=== PATIENT | female | born 1970 | race American Indian/Alaskan Native ===

== ENCOUNTER 2017-05-19 10:41 | Outpatient (CLI) | payer BC ==
--- NOTE | 2017-05-20 11:05 | Mammography Report ---
BILATERAL DIGITAL SCREENING MAMMOGRAM with CAD: 05/19/17 10:41:00 CLINICAL: Routine screening. COMPARISON:04/03/16 FINDINGS: The breasts are heterogeneously dense, which may obscure small masses. No mass, architectural distortion or suspicious calcifications. IMPRESSION: No mammographic evidence of malignancy. BI-RADS CATEGORY: 1 - - Negative RECOMMENDATION: Routine mammographic screening in one year. COMMENT: Patient follow-up letters are generated by our [employer] application.
== END 2017-05-19 10:42 | disposition home or self-care (01) ==
LOC: SPVWC 10:41
PROVIDERS: ATTEND Obstetrics & Gynecology
DX: Z12.31 Encounter for screening mammogram for malignant neoplasm of breast (principal)
CPT/HCPCS: 77067; G0202

== ENCOUNTER 2017-09-28 08:13 | Observation (INO) | payer BC ==
[2017-09-27 12:34] LABS: Basophils % (Auto) 1.1 % (0.0-1.8); Eosinophils # (Auto) 0.1 K/mm3 (0.0-0.4); Eosinophils % (Auto) 2.4 % (0.0-4.3); Hematocrit 36.2 % (30.3-42.9); Hemoglobin 11.6 gm/dl (10.1-14.3); Lymphocytes # (Auto) 1.1 K/mm3 (1.2-5.4); Lymphocytes % (Auto) 39.3 % (13.4-35.0); Mean Corpuscular HGB Conc 32 % (30-34); Mean Corpuscular Volume 78 fl (79-97); Monocytes # (Auto) 0.3 K/mm3 (0.0-0.8); Monocytes % (Auto) 12.2 % (0.0-7.3); Platelet Count 170 K/mm3 (140-440); Red Blood Count 4.62 M/mm3 (3.65-5.03); Red Cell Distribution Width 12.7 % (13.2-15.2)
[2017-09-27 12:35] LABS: Mean Corpuscular Hemoglobin 25 pg (28-32)
[2017-09-27 12:56] LABS: BUN/Creatinine Ratio 13; Blood Urea Nitrogen 10 mg/dL (7-17); Calcium 8.9 mg/dL (8.4-10.2); Hemolysis Index 6
--- NOTE | 2017-09-27 13:15 | Anesthesia Consultation ---
Anesthesia Consult and Med Hx Date of service: 09/27/17 - Airway Anesthetic Teeth Evaluation: Good, Caps, Crowns ROM Head & Neck: Adequate Mental/Hyoid Distance: Adequate Mallampati Class: Class II Intubation Access Assessment: Probably Good - Pulmonary Exam CTA: Yes - Cardiac Exam Cardiac Exam: RRR - Pre-Operative Health Status ASA Pre-Surgery Classification: ASA2 Proposed Anesthetic Plan: General Nerve Block: TAP - Pre-Anesthesia Comment Pre-Anesthesia Comments: Patient indicates that she has thalassemia - Pulmonary Hx Smoking: No - Cardiovascular System Hx Hypertension: No - Central Nervous System Hx Psychiatric Problems: No - Gastrointestinal Hx Gastroesophageal Reflux Disease: No - Endocrine Hx Hypothyroidism: Yes (Treated in the past, unsure about now) - Other Systems Hx Alcohol Use: Yes (occas) Hx Cancer: No - Additional Comments Anesthesia Medical History Comments: The patient indicates that she had back pain after a spinal anesthetic.
--- NOTE | 2017-09-27 16:39 | History and Physical Report ---
History of Present Illness Date of examination: 09/23/17 Chief complaint: Worsening severe dysmenorrhea and pelvic pain, intermittent menometrorrhagia History of present illness: History of Present Illness: This is a 46 year old female who presents for pre-op visit for hysterectomy. She has had a long history of dysmenorrhea and pelvic pain along with intermittent menometrorrhagia. Pain has become progressively worse over the last 8years to the point where now the pain is interfering with her quality of life. Pain improved with POPPY continuous therapy however she experienced excessive and frequent irregular bleeding on hormonal therapy. She declines any other hormonal/medical therapy or conservative surgical intervention. She now desires to proceed with hysterectomy and reveal of her fallopians and ovaries. Past History : 3 Term Births: 2 Living Children: 2 Para: 2 Spont. 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, followed by PCP thalassemia Past Surgical History: Reviewed history from 04/05/2008 and no changes required: D&C Family History Summary: Reviewed history Last on 07/15/2017 and no changes required:09/27/2017 Other family member - Has No Family History of Biliary Tract Cancer - Entered On : 05/28/2017 Other family member - Has No Family History of Brain Cancer - Entered On: 2016 Other family member - Has No Family History of Colon Cancer - Entered On: 2016 Other family member - Has No Family History of DVT/PE on OCP - Entered On: 05/28 Other family member - Has No Family History of Kidney/Urinary Tract Cancer - Entered On: 05/28/2017 Other family member - Has No Family History of Ovarvian Cancer - Entered On: Other family member - Has No Family History of Pancreatic Cancer - Entered On: 05/28/2017 Other family member - Has No Family History of Stomach Cancer - Entered On: Other family member - Has No Family History of Small Bowel Cancer - Entered On: 05/28/2017 Other family member - Has No Family History of Uterine Cancer - Entered On: Aunt - Has Family History Breast Cancer - maternal, diagnosed in at age 64 - Entered On: 09/27/2017 General Comments - FH: No Family History of Breast Cancer No Family History of Colon Cancer No Family History of Ovarian Cancer No Family History of DVT/PE on OCP Social History: Reviewed history from 05/13/2017 and no changes required: Patient is Smoking History: Patient has never smoked. Risk Factors: PAP Smear History: Date of Last PAP Smear: 07/15/2017 Previous Tobacco Use: Signed On - 05/28/2017 Smoked Tobacco Use: Never smoker Smokeless Tobacco Use: Never Passive smoke exposure: no Drug use: no HIV high-risk behavior: no Previous Alcohol Use: Signed On - 05/28/2017 Alcohol use: yes Type: occ Drinks per day: <1 Exercise: yes Times per week: 3 Type of Exercise: occ Seatbelt use: 100 % Mammogram History: Date of Last Mammogram: 05/19/2017 PAP Smear History: Date of Last PAP Smear: 07/15/2017 Review of Systems General Denies fever, chills, sweats, anorexia, fatigue, weakness, malaise, weight loss and sleep disorder. Complains of pelvic pain and painful periods. Denies vaginal discharge, incontinence, dysuria, hematuria, urinary frequency, amenorrhea, menorrhagia, abnormal vaginal bleeding, genital sores, decreased libido, painful sex, urinary urgency, hot flashes, vaginal dryness, vaginal itching and vaginal odor. CV Denies chest pains, palpitations, syncope, dyspnea on exertion, orthopnea, PND and peripheral edema. Resp Denies cough, dyspnea at rest, excessive sputum, hemoptysis, wheezing and pleurisy. GI Denies nausea, vomiting, diarrhea, constipation, change in bowel habits, abdominal pain, melena, hematochezia, jaundice, gas/bloating, indigestion/ heartburn, dysphagia and odynophagia. Endo Denies cold intolerance, heat intolerance, polydipsia, polyphagia, polyuria and unusual weight change. Breast Denies left breast lump, right breast lump, nipple discharge, bloody discharge from nipple, breast pain, abnormal mammogram and breast enlargement. MS Denies back pain, joint pain, joint swelling, muscle cramps, muscle weakness, stiffness, arthritis, sciatica, restless legs, leg pain at night and leg pain with exertion. Derm Denies rash, itching, dryness and suspicious lesions. Neuro Denies paralysis, paresthesias, headache, seizures, tremors, vertigo, transient blindness, frequent falls, frequent headaches and difficulty walking. Psych Denies depression, anxiety, irritability and mood swings. Eyes Denies blurring, diplopia, irritation, discharge, vision loss, eye pain and photophobia. ENT Denies earache, ear discharge, tinnitus, decreased hearing, nasal congestion, nosebleeds, sore throat and hoarseness. Allergy Denies urticaria, allergic rash, hay fever and recurrent infections. Heme Denies abnormal bruising, bleeding and enlarged lymph nodes. Physical Exam Appearance: well developed, well nourished, no acute distress Other Exams Lungs: no rales, rhonchi, or wheezes Heart: S1, S2, no murmur, rub, or gallop Abdomen: soft, non-tender, no masses, Skin: no ulcers, xanthomas Lymph: no cervical, axillary, or inguinal adenopathy Extremities: normal alignment, no joint enlargement, crepitus, masses or tenderness; normal tone and strength Genitourinary Exam Vulva: normal, no lesions or discharge Urethral meatus: normal size and location, no lesions or discharge Urethra: no discharge Bladder: no cystocele Vagina: normal appearance, no discharge, lesions. No evidence of cystocele or rectocele. Cervix: normal appearance, no lesions, no discharge Uterus: first-degree retroversion, fixed Adnexa: no masses or tenderness Impression & Recommendations: Problem # 1: DYSMENORRHEA (ICD-625.3) (FLS17-Q66.6) Consent reviewed and signed . Possible laparoscopy or laparotomy explained to patient. The risks and alternatives for this surgery were reviewed with the patient. She was informed of possible bleeding, infection, injury to bowel, bladder, ureters or other adjacent organs. She was also informed that her pain may due to endometriosis and to keep her ovaries may cause her to continue ot have pain. She desires to proceed with removal of both of her fallopian tubes and ovaries. She was informed she will immediately be placed in menopause after ovaries have been removed and her mortality, morbidity and cancer risk may increase. The patient was instructed/informed the following: The normal length of hospital stay for this procedure. Nothing to eat or drink after midnight the evening prior to surgery. Clear liquids the day before surgery. Fleets enema the day prior to surgery. Pre-op instruction sheets given. Wound care instructions given. Infection precautions reviewed, patient to call for any signs or symptoms of infection. The usual discomforts associated with this procedure were detailed. Proper use of pain medicines was reviewed. Patient was given ample opportunity to have all her questions answered before signing informed consent. Problem # 2: Pelvic and perineal pain (ICD-789.00) (PQA70-U47.2) It was extensively explained to her that her pain may persist, recur or change in nature due to the difficulty with diagnosis chronic pelvic pain or development of adhesions. She declined other treatment options at this time. Questions were encouraged and answered. Consents were reviewed and signed. Problem # 3: Excessive and frequent menstruation with irregular cycle (ICD- 626.6) (FHU99-J10.1) She is aware she will not be able to get after her uterus is removed and due to history of thalassemia her anemia may recur The following medications were removed from the medication list: Medications Added to Medication List This Visit: 1) Oxycodone-acetaminophen 5-325 Mg Oral Tablet (Oxycodone-acetaminophen) .... 1-2po q6h 2) Ibuprofen 800 Mg Oral Tablet (Ibuprofen) .... 1 po tid (prn) 3) Multivitamins Oral Capsule (Multiple vitamin) Prescriptions: IBUPROFEN 800 MG ORAL TABLET (IBUPROFEN) 1 po TID (PRN) #30 x 1 Entered and Authorized by: Lashawn Torres MD Method used: Print then Give to Patient RxID: [id number] OXYCODONE-ACETAMINOPHEN 5-325 MG ORAL TABLET (OXYCODONE-ACETAMINOPHEN) 1-2po q6h #30 Tablet x 0 Entered and Authorized by: Lashawn Torres MD Method used: Print then Give to Patient RxID: [id number] Medications and Allergies Allergies Allergy/AdvReac Type Severity Reaction Status Date / Time No Known Allergies Allergy Unverified 09/23/17 14:36 Home Medications Medication Instructions Recorded Confirmed Last Taken Type Ibuprofen 800 mg PO PRN PRN 09/23/17 09/23/17 Unknown History Active Meds: Active Medications Bupivacaine HCl (Marcaine 0.5%) 20 ml INFILTRATI PREOP NR Stop: 09/27/17 23:59 Sodium Chloride (Nacl 0.9% 1000 Ml) 1,000 mls @ 42 mls/hr IV DIRECT OLIMPIA Lactated Ringer's (Lactated Ringers) 1,000 mls @ 100 mls/hr IV DIRECT OLIMPIA Lidocaine (Xylocaine 1% 20 Ml) 10 ml INFILTRATI PREOP NR Stop: 09/27/17 23:59 Midazolam HCl (Versed) 2 mg IV PREOP NR Stop: 09/27/17 23:59 Midazolam HCl (Versed) 2 mg IV PREOP NR Stop: 09/28/17 23:59 Sodium Chloride (Nacl P/F Vial (10 Ml)) 1 ml INFILTRATI PREOP NR Stop: 09/27/17 23:59 Exam Vital Signs Temp Pulse Resp BP 98.2 F 64 18 130/80 09/27/17 11:50 09/27/17 11:50 09/27/17 11:50 09/27/17 11:50 Results - Labs 09/27/17 12:20 09/27/17 12:20 Abnormal lab results 09/27/17 Range/Units 12:20 WBC 2.7 L (4.5-11.0) K/mm3 MCV 78 L (79-97) fl MCH 25 L (28-32) pg RDW 12.7 L (13.2-15.2) % Lymph % (Auto) 39.3 H (13.4-35.0) % [place] % (Auto) 12.2 H (0.0-7.3) % Lymph # 1.1 L (1.2-5.4) K/mm3 Seg Neutrophils # 1.2 L (1.8-7.7) K/mm3 Diabetes panel 09/27/17 Range/Units 12:20 Sodium 138 (137-145) mmol/L Potassium 4.0 (3.6-5.0) mmol/L Chloride 100.6 (98-107) mmol/L Carbon Dioxide 24 (22-30) mmol/L BUN 10 (7-17) mg/dL Creatinine 0.8 (0.7-1.2) mg/dL Glucose 82 (65-100) mg/dL Calcium 8.9 (8.4-10.2) mg/dL Thyroid panel 09/27/17 Range/Units 12:20 TSH 0.681 (0.270-4.200) mlU/mL Calcium panel 09/27/17 Range/Units 12:20 Calcium 8.9 (8.4-10.2) mg/dL Pituitary panel 09/27/17 09/27/17 Range/Units 12:20 12:20 Sodium 138 (137-145) mmol/L Potassium 4.0 (3.6-5.0) mmol/L Chloride 100.6 (98-107) mmol/L Carbon Dioxide 24 (22-30) mmol/L BUN 10 (7-17) mg/dL Creatinine 0.8 (0.7-1.2) mg/dL Glucose 82 (65-100) mg/dL Calcium 8.9 (8.4-10.2) mg/dL TSH 0.681 (0.270-4.200) mlU/mL Adrenal panel 09/27/17 Range/Units 12:20 Sodium 138 (137-145) mmol/L Potassium 4.0 (3.6-5.0) mmol/L Chloride 100.6 (98-107) mmol/L Carbon Dioxide 24 (22-30) mmol/L BUN 10 (7-17) mg/dL Creatinine 0.8 (0.7-1.2) mg/dL Glucose 82 (65-100) mg/dL Calcium 8.9 (8.4-10.2) mg/dL Assessment and Plan - Patient Problems (1) Dysmenorrhea Status: Acute (2) Pelvic pain Status: Acute (3) Menometrorrhagia Status: Acute (4) Thalassemia Status: Acute (5) Neutropenia Status: Acute
[~2017-09-28 08:13] MED LIST: ANCEF/STERILE WATER 2 GM/20 ML 2 GM/20 ML SYRINGE IV NR; LACTATED RINGERS 1,000 ML IV SCH; MARCAINE 0.5% INFILTRATI NR; NACL 0.9% 1000 ML 1,000 ML IV SCH; NACL P/F VIAL (10 ML) INFILTRATI NR; SUBLIMAZE IV ONE; THROMBIN (BOVINE) TP ONE; VERSED IV NR; XYLOCAINE 1% 20 mL INFILTRATI NR
[2017-09-28] MEDS ORDERED: NACL BACTERIOSTATIC INFILTRATI ONE (09:11)
[2017-09-28] MEDS ORDERED: PEPCID IV NR (09:15)
[2017-09-28] MEDS ORDERED: NEURONTIN PO NR (10:00)
[2017-09-28] MEDS ORDERED: CALCIUM CHLORIDE IV ONE ×2 (10:16→11:44)
[2017-09-28] MEDS ORDERED: NEOSPORIN GU IR ONE ×2 (10:16→11:44)
[2017-09-28] MEDS ORDERED: DIPRIVAN 10 MG/ML IV ONE (10:22)
[2017-09-28] MEDS ORDERED: ZEMURON IV ONE (10:23)
[2017-09-28] MEDS ORDERED: XYLOCAINE MPF 2% ONE (10:23)
[2017-09-28] MEDS ORDERED: DILAUDID ONE ×2 (10:23→13:44)
--- NOTE | 2017-09-28 10:34 | Anesthesia Day of Surgery ---
Anesthesia Day of Surgery - Day of Surgery Patient Examined: Yes Patient H&P Reviewed: Yes Patient is NPO: Yes
[2017-09-28] MEDS ORDERED: ePHEDrine SULFATE ONE (11:23)
[2017-09-28] MEDS ORDERED: NEO SYNEPHRINE/NS Syringe(OR USE) IV ONE (11:23)
[2017-09-28] MEDS ORDERED: LACTATED RINGERS 1,000 ML ONE ×2 (11:25→13:49)
[2017-09-28] MEDS ORDERED: MARCAINE 0.25% INFILTRATI ONE ×2 (11:41→11:44)
[2017-09-28] MEDS ORDERED: WATER FOR IRRIG STERILE IR ONE (11:43)
[2017-09-28] MEDS ORDERED: NACL 0.9% IR ONE (11:44)
[2017-09-28] MEDS ORDERED: THROMBIN (BOVINE) TP ONE (11:45)
[2017-09-28] MEDS ORDERED: BLOXIVERZ ONE (11:50)
[2017-09-28] MEDS ORDERED: ROBINUL ONE (11:50)
[2017-09-28] MEDS ORDERED: DECADRON ONE (11:50)
[2017-09-28] MEDS ORDERED: ZOFRAN ONE (11:50)
[2017-09-28] MEDS ORDERED: TORADOL ONE (12:20)
--- NOTE | 2017-09-28 12:59 | Operative Report ---
Operative Report Operative Report: Date: 09/28/2017 Preoperative diagnosis: 1. Severe worsening dysmenorrhea with pelvic pain 2. Intermittent excesses and frequent irregular menstruation Postoperative diagnosis: 1. Severe worsening dysmenorrhea with pelvic pain 2. Intermittent excesses and frequent irregular menstruation Procedure: 1. Robotic-assisted laparoscopic total hysterectomy with bilateral salpingo-oophorectomy Surgeon: Lashawn Torres MD Performance Makeup Artist: Maya Fisher Anesthesiologist: David Mullen M.D. Anesthesia: General endotracheal anesthesia EBL: Approximately minimum mL Findings: Uterus was sounded to 9 cm. Grossly normal uterus tubes and ovary and appendix. Endometriosis implant on right ovary. Procedure: Patient was taken to the OR and placed in the supine position. General anesthesia was induced and an oral gastric tube was placed. Her neck and head were placed on foam support. Foam eye protection with goggles were secured in place. Then foam face protection was placed and secured. Foam shoulder pads were then positioned on her shoulders for Trendelenburg positioning. She was then placed in dorsolithotomy position. Exam under anesthesia as above. The abdomen and vagina were then prepped and draped in the usual sterile fashion. Timeout was performed. A Betancourt catheter was inserted into the bladder with drainage of clear yellow urine. The operative speculum was introduced into the vagina and the anterior lip of the cervix was grasped with single-toothed tenaculum. The uterus was sounded to 9 cm. The cervix was progressively dilated to allow the large V care uterine manipulator. The bulb of the manipulator was inflated and the speculum and tenaculum were removed. The cup of the manipulator was placed around the cervix and the blue occluder of the manipulator was properly positioned in the vagina. A laparotomy sponge that was saturated with a solution of polymyxin and saline was placed in the vagina to ensure pneumoperitoneum. Sterile gloves were placed and attention was turned to the abdomen. A 10 mm vertical supraumbilical incision was made approximately 10 cm superior to the elevated fundus of the uterus. A 12 mm trocar with the laparoscope and camera attached was introduced through this incision under direct visualization. The abdomen was insufflated. No obvious bowel, bladder, ureteral, or major vascular injury was noted. The patient was then placed in steep Trendelenburg position and the following trochars were placed under direct visualization: 8 mm robotic trochars were placed through incisions made in the bilateral midclavicular lower abdominal region approximately 10 cm lateral and approximately 2 cm below the midline incision, and a 5 mm trocar was placed through an incision made in the right lower lateral pelvis approximately 2 cm superior to the iliac crest. The 10 mm laparoscope was then replaced by a 5 mm laparoscope that was placed through the 5 millimeter lateral trocar. The 12 mm trocar was then removed in the Lino Mosley fascial closure device was placed through the incision and a 0 Vicryl was placed through the fascia. Once the suture was secured the 12 mm trocar was reintroduced. Once the trochars were in the appropriate positions, the da Eileen robot system was engaged. The EndoShears and bipolar device was placed through the 8 mm trochars and positioned then attention was turned to the console. The uterus was elevated and bilateral salpingectomy was performed. Each tube was removed through the 5 mm trocar and sent to pathology in separate containers. Then the utero-ovarian ligaments were clamped. cauterized and incised bilaterally using 30 W of energy. Then the round ligaments were clamped , cauterized and incised bilaterally. The anterior leaf of the broad ligament was elevated and careful blunt and sharp dissection the bladder flap was created and dissected away from the lower uterine segment and cervix. The posterior leaf of the broad ligament was dissected away from the uterine vessels. The cup of the uterine manipulator was palpated both anteriorly and posteriorly. Course of the ureters was visualized and was confirmed to be away from the operative field. The uterine vessels were then clamped and cauterized bilaterally. Blanching of the uterus was then noted. Attention was again turned to the anterior lower uterine segment and the bladder was confirmed to be away from the operative field. Then attention was turned again to the posterior where the cup of the manipulator was palpated and a colpotomy was performed down to the cup. The incision was extended in the lateral position the uterine vessels that were again clamped and cauterized and incised. Continuing along the cup of the manipulator in a circumferential manner the colpotomy was completed. The uterus and cervix were then removed through the vaginal incision. Attention was then turned back to the adnexa. The right ovary was elevated and the course of the ureter was established. Then the infundibulopelvic ligament was clamped and cauterized and excised. Once the ovary and tube were released and removed through the vagina. The same procedure was performed on the left adnexa. Hemostasis was noted bilaterally. The pelvis was irrigated with warm normal saline. A moist laparotomy sponge was placed in the vagina to maintain pneumoperitoneum. The vagina cuff was reapproximated using V LOC 180 suture in a simple running stitch. Then a J stitch was performed to secure the suture. Again the pelvis was copiously irrigated with polymixin in warm normal saline. The laparotomy sponge was removed from the vagina. No bowel, bladder, ureteral or major vascular injury was noted. Once hemostasis was noted, platelet which plasma was applied to the operative field to ensure hemostasis. Then platelet poor plasma was applied to the operative field to decrease formation of adhesions. Again hemostasis was noted. Grossly normal appendix was noted. Then the instruments were removed, the robot was disengaged. The 12 mm trocar was removed and the fascia was ligated with the 0 Vicryl suture that was placed at the beginning of the procedure. The patient was taken out of Trendelenburg position, the abdomen was desufflated, the remaining trochars were removed. Incisions were reapproximated using 4-0 Vicryl in a subcuticular manner. Incisions were infused with half percent Marcaine without epinephrine and Surgiseal was placed over the incisions. The vagina was then inspected, no bleeding was noted and clear yellow urine was draining into the Betancourt bag from the bladder at the end of the procedure. Patient was taken to recovery room in stable condition.
[2017-09-28] MEDS ORDERED: DILAUDID IV PRN (13:47)
[2017-09-28] MEDS ORDERED: REGLAN IV PRN (15:47)
[2017-09-28] MEDS ORDERED: TYLENOL PR PRN (15:47)
[2017-09-28] MEDS ORDERED: ANCEF/NS 1 GM/50 ML 1 GM/50 ML BAG IV SCH (15:47)
[2017-09-28] MEDS ORDERED: ZOFRAN IV PRN (15:47)
[2017-09-28] MEDS ORDERED: MORPHINE IV PRN (15:47)
[2017-09-28] MEDS ORDERED: ZOFRAN PO PRN (15:47)
[2017-09-28] MEDS ORDERED: REGLAN PO PRN (15:47)
[2017-09-28] MEDS ORDERED: PERCOCET 5/325 PO PRN (15:47)
[2017-09-28] MEDS: TYLENOL PO SCH (16:00)
[2017-09-28] MEDS: ceFAZolin 1 GM in NACL 0.9% 20 ML IV SCH (20:00)
--- NOTE | 2017-09-28 20:06 | Progress Note ---
Assessment and Plan - Patient Problems (1) History of robot-assisted laparoscopic hysterectomy Current Visit: Yes Status: Acute Plan to address problem: Operative findings and procedures explained, plan of care discussed, questions encouraged and answered, she voiced understanding and agrees (2) Status post bilateral salpingo-oophorectomy Current Visit: Yes Status: Acute (3) Dysmenorrhea Current Visit: No Status: Resolved (4) Pelvic pain Current Visit: No Status: Resolved (5) Menometrorrhagia Current Visit: No Status: Resolved (6) Thalassemia Current Visit: No Status: Chronic (7) Neutropenia Current Visit: No Status: Chronic Subjective Date of service: 09/28/17 Principal diagnosis: DOS RATH/BSO Interval history: Resting in bed, family at bedside, no complaints Objective - Constitutional Vitals: Vital Signs - 12hr 09/28/17 09/28/17 09/28/17 08:45 08:50 12:41 Temperature 98.1 F 98.2 F 97.5 F L Pulse Rate 54 L 60 73 Respiratory 16 18 26 H Rate Blood Pressure 116/71 130/80 120/69 Blood Pressure [Right] O2 Sat by Pulse 100 100 Oximetry 09/28/17 09/28/17 09/28/17 12:45 12:50 12:55 Temperature Pulse Rate 64 52 L 60 Respiratory 12 12 13 Rate Blood Pressure 122/69 116/64 112/70 Blood Pressure [Right] O2 Sat by Pulse 100 100 100 Oximetry 09/28/17 09/28/17 09/28/17 13:00 13:45 14:00 Temperature 97.6 F Pulse Rate 67 51 L 54 L Respiratory 11 L 12 11 L Rate Blood Pressure 117/71 124/70 124/69 Blood Pressure [Right] O2 Sat by Pulse 100 100 100 Oximetry 09/28/17 14:45 Temperature 97.9 F Pulse Rate 72 Respiratory 16 Rate Blood Pressure Blood Pressure 140/74 [Right] O2 Sat by Pulse 99 Oximetry General appearance: Present: no acute distress - Respiratory Respiratory effort: normal - Gastrointestinal General gastrointestinal: Present: soft, normal bowel sounds - Genitourinary Female genitourinary: deferred - Psychiatric Psychiatric: appropriate mood/affect, intact judgment & insight - Additional findings Additional findings: extremities; NT, no edema, Foot pumps on and working appropriately - Labs CBC & Chem 7: 09/27/17 12:20 09/27/17 12:20
[2017-09-28] MEDS: TORADOL IV SCH (22:11)
[2017-09-29] MEDS: TYLENOL PO SCH ×2 (00:30→09:57)
[2017-09-29] MEDS: ceFAZolin 1 GM in NACL 0.9% 20 ML IV SCH (03:15)
[2017-09-29] MEDS: TORADOL IV SCH ×2 (05:02→12:55)
[2017-09-29 05:16] LABS: Hematocrit 32.5 % (30.3-42.9); Hemoglobin 10.2 gm/dl (10.1-14.3)
[2017-09-29] MEDS ORDERED: PROTONIX IV SCH (10:00)
--- NOTE | 2017-09-29 13:00 | Discharge Summary ---
Providers - Providers Date of Admission: 09/28/17 12:36 Date of discharge: 09/29/17 Attending physician: SCOTT GARCÍA Primary care physician: KASEY WRIGHT Hospitalization Condition: Good Procedures: RATH/BSO Hospital course: Unremarkable Disposition: DC- TO HOME OR SELFCARE - Discharge Diagnoses (1) History of robot-assisted laparoscopic hysterectomy Status: Acute (2) Status post bilateral salpingo-oophorectomy Status: Acute (3) Dysmenorrhea Status: Resolved (4) Pelvic pain Status: Resolved (5) Menometrorrhagia Status: Resolved (6) Thalassemia Status: Chronic (7) Neutropenia Status: Chronic Core Measure Documentation - Palliative Care Palliative Care/ Comfort Measures: Not Applicable - Core Measures Any of the following diagnoses?: none Exam - Constitutional Vitals: Temp Pulse Resp BP Pulse Ox 98.5 F 62 16 111/63 100 09/29/17 12:30 09/29/17 12:30 09/29/17 12:30 09/29/17 12:30 09/29/17 12:30 General appearance: Present: no acute distress, well-nourished - Respiratory Respiratory effort: normal Respiratory: negative: CTA - Cardiovascular Rhythm: regular - Extremities Extremities: no ischemia, No edema - Abdominal General gastrointestinal: Present: soft, non-tender, non-distended, normal bowel sounds Female genitourinary: Present: deferred - Integumentary Integumentary: Present: clear (Incisions C/D/I), warm, dry - Psychiatric Psychiatric: appropriate mood/affect, intact judgment & insight Plan Activity: other (No sex, no driving, ambulate ~1mle on your property a day. Use your incentive spirometer every 1-2hours while awake) Weight Bearing Status: Weight Bear as Tolerated Diet: regular (Eat small meals frequently, void spicy foods. Drink ~80oz water a day, void every 1-2hours) Wound: open to air, keep clean and dry (May shower) Special Instructions: no heavy lifting (>25#) Follow up with: KASEY WRIGHT MD [Primary Care Provider] - 7 Days SCOTT GARCÍA MD [Staff Physician] - 10/06/17 10:15 am ([place])
[2017-09-29] MEDS ORDERED: MYLICON PO PRN (13:30)
[2017-09-29] MEDS ORDERED: ALUM-MAG HYDROX-SIMETH 200-200-20MG/5ML PO ONE (16:00)
[2017-09-29 17:14] VITALS: BP 118/59
== END 2017-09-29 18:00 | disposition home or self-care (01) ==
LOC: OR 08:13 → OB 12:36
PROVIDERS: ADMIT Obstetrics & Gynecology; ATTEND Obstetrics & Gynecology
DX: N94.6 Dysmenorrhea, unspecified (principal); N92.1 Excessive and frequent menstruation with irregular cycle; D70.9 Neutropenia, unspecified; D56.9 Thalassemia, unspecified
CPT/HCPCS: 36415; 58552; 80048; 81025; 84443; 85014; 85018; 85025; 86850; 86900; 86901; 88305; 88307; 96374; 96375; 96376; A4217; C9113; G0378; J0690; J1100; J1170; J1885; J2250; J2370; J2405; J2704; J2710; J7120; S2900; 88302

== ENCOUNTER 2018-09-20 08:46 | Outpatient (CLI) | payer OTHER ==
--- NOTE | 2018-09-20 14:08 | Mammography Report ---
BILATERAL DIGITAL SCREENING MAMMOGRAM with CAD: 09/20/18 08:46:00 CLINICAL: Routine screening. COMPARISON:05/19/17 and 02/12/14 FINDINGS: The breasts are heterogeneously dense, which may obscure small masses. No mass, architectural distortion or suspicious calcifications. IMPRESSION: No mammographic evidence of malignancy. BI-RADS CATEGORY: 1 - - Negative RECOMMENDATION: Routine mammographic screening in one year. COMMENT: Patient follow-up letters are generated by our [employer] application.
== END 2018-09-20 08:47 | disposition home or self-care (01) ==
LOC: SPVWC 08:46
PROVIDERS: ATTEND Obstetrics & Gynecology
DX: Z12.31 Encounter for screening mammogram for malignant neoplasm of breast (principal)
CPT/HCPCS: 77067